=== PATIENT | female | born 1945 | race Caucasian/White ===

== ENCOUNTER → 2018-02-16 11:57 | Outpatient (CLI) | payer MEDICARE, SELFPAY ==
[2018-02-16 12:15] LABS: ALB/GLOB Ratio 0.9 RATIO (0.9-2.4); AST(SGOT) 69 U/L (15-37); Alanine Aminotransfer ALT/SGPT 30 U/L (13-56); Albumin, Serum 3.1 g/dL (3.2-5.0); Alkaline Phosphatase 97 U/L (45-117); Anion Gap 7 (5-15); BUN 22 mg/dL (7-18); BUN/Creat Ratio 17.5 RATIO (10-20); Calcium,Total 8.2 mg/dL (8.5-10.1); Chloride 107 mmol/L (98-107); Creatinine, Serum 1.26 mg/dL (0.55-1.02); EST Glomerular Filtration Rate 44 mL/min (>60); Est Glom Filt Rate - Afr Amer 53 mL/min (>60); Globulin 3.5 g/dL (2.2-4.2); Glucose 106 mg/dL (74-106); Potassium 4.1 mmol/L (3.5-5.1); Protein, Total 6.6 g/dL (6.4-8.2); Sodium Level 140 mmol/L (136-145)
== END ==
PROVIDERS: Family Provider Family Medicine; PCP Family Medicine; Visit Provider Internal Medicine Hematology & Oncology
DX: C91.10 Chronic lymphocytic leukemia of B-cell type not having achieved remission (principal); C50.111 Malignant neoplasm of central portion of right female breast; Z17.0 Estrogen receptor positive status [ER+]; D80.1 Nonfamilial hypogammaglobulinemia
CPT/HCPCS: 80053

== ENCOUNTER → 2018-04-27 11:02 | Outpatient (CLI) | payer MEDICARE, SELFPAY ==
[2018-04-27 11:25] LABS: ALB/GLOB Ratio 0.8 RATIO (0.9-2.4); AST(SGOT) 13 U/L (15-37); Alanine Aminotransfer ALT/SGPT 15 U/L (13-56); Albumin, Serum 3.1 g/dL (3.2-5.0); Alkaline Phosphatase 62 U/L (45-117); Anion Gap 8 (5-15); BUN 18 mg/dL (7-18); BUN/Creat Ratio 12.9 RATIO (10-20); Calcium,Total 8.2 mg/dL (8.5-10.1); Chloride 104 mmol/L (98-107); EST Glomerular Filtration Rate 39 mL/min (>60); Est Glom Filt Rate - Afr Amer 47 mL/min (>60); Globulin 3.8 g/dL (2.2-4.2); Glucose 163 mg/dL (74-106); Potassium 3.8 mmol/L (3.5-5.1); Protein, Total 6.9 g/dL (6.4-8.2); Sodium Level 139 mmol/L (136-145)
== END ==
PROVIDERS: Visit Provider Internal Medicine Hematology & Oncology
DX: C91.10 Chronic lymphocytic leukemia of B-cell type not having achieved remission (principal); Z17.0 Estrogen receptor positive status [ER+]; D80.1 Nonfamilial hypogammaglobulinemia
CPT/HCPCS: 80053

== ENCOUNTER → 2018-07-12 11:54 | Outpatient (CLI) | payer MEDICARE, SELFPAY ==
[2018-07-12 12:16] LABS: ALB/GLOB Ratio 0.9 RATIO (0.9-2.4); AST(SGOT) 12 U/L (15-37); Alanine Aminotransfer ALT/SGPT 13 U/L (13-56); Albumin, Serum 3.3 g/dL (3.2-5.0); Alkaline Phosphatase 54 U/L (45-117); Anion Gap 10 (5-15); BUN 22 mg/dL (7-18); BUN/Creat Ratio 15.3 RATIO (10-20); Calcium,Total 8.5 mg/dL (8.5-10.1); Chloride 105 mmol/L (98-107); Creatinine, Serum 1.44 mg/dL (0.55-1.02); EST Glomerular Filtration Rate 38 mL/min (>60); Est Glom Filt Rate - Afr Amer 46 mL/min (>60); Globulin 3.5 g/dL (2.2-4.2); Glucose 214 mg/dL (74-106); Potassium 3.8 mmol/L (3.5-5.1); Protein, Total 6.8 g/dL (6.4-8.2); Sodium Level 141 mmol/L (136-145)
== END ==
PROVIDERS: Family Provider Family Medicine; PCP Family Medicine; Visit Provider Internal Medicine Hematology & Oncology
DX: C91.90 Lymphoid leukemia, unspecified not having achieved remission (principal); C50.111 Malignant neoplasm of central portion of right female breast; Z17.0 Estrogen receptor positive status [ER+]
CPT/HCPCS: 80053

== ENCOUNTER 2020-03-13 14:34 | Emergency (ER) | payer MEDICARE, SELFPAY ==
[2020-03-13 14:36] VITALS: BP 137/68; PULSE 113; RESP 20; TEMP 36.7; O2SAT 98; BMI 26.0
--- NOTE | 2020-03-13 15:35 | RAD_ITS ---
STUDY: X-RAY CHEST REASON FOR EXAM: Female, 75 years old. Shortness of breath, chest congestion TECHNIQUE: Single AP portable view of the chest. COMPARISON: Comparison is made with prior examination dated February 04, 2015. FINDINGS: Mild increased markings at the lung bases slightly more prominent on the left side suggestive of linear atelectasis and/or scarring. No infiltrate is seen. There is no demonstrated pleural abnormality. Normal size heart. Normal mediastinum and ronald. Normal visualized pulmonary arteries. There is atherosclerotic tortuosity of the aortic arch and descending thoracic aorta. There are degenerative changes of the visualized thoracic spine. Normal visualized ribs, clavicles, and shoulders. There is no demonstrated abnormality of the visualized soft tissue structures of the upper abdomen. RAD/Chest 1 View (Portable) IMPRESSION: Mild increased markings at the lung bases suggestive of linear atelectasis and/or scarring. Electronically Signed: Hugh Gutiérrez, at 16:15 EDT , Service support ,
[2020-03-13 16:01] VITALS: BP 107/73; PULSE 92; RESP 17; TEMP 36.7; O2SAT 98
[2020-03-13 16:10] VITALS: O2SAT 98
--- NOTE | 2020-03-13 16:34 | ED.DCSUM_ITS ---
History of Present Illness Chief Complaint: Cough Informant: Patient Onset: Days - 2 Narrative: 2-day history of cough no productive sputum. No fevers. Mild myalgias yesterday. No vomiting or diarrhea. 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 States she gets IgG infusions last time was 7 weeks ago normally gets every 4 weeks however held due to current COVID pandemic. Had a temp of 99 yesterday. Call her oncologist Dr. Christina was told to go get a chest x-ray. States went to outpatient department was told to go to the ED. No respiratory distress. No dyspnea. No wheeze. Prior similar symptoms: No Past Medical History - Allergies and Home Meds Allergies/Adverse Reactions: Allergies quinine Allergy (Verified 03/13/20 14:39) Rash sulfamethoxazole [From Bactrim] Allergy (Verified 03/13/20 14:39) Rash trimethoprim [From Bactrim] Allergy (Verified 03/13/20 14:39) Rash Primary Care Physician: Ho Walker MD [Primary Care Provider] - Past Medical History: - - CLL, breast cancer, acquired thrombocytopenia, hypo- agammaglobulinemia, Smoking Status: Never smoker Review of Systems General: Denies: Chills, Fever, Sweats Eyes: Denies: Visual changes - bilaterally, Diplopia ENT: Denies: Rhinorrhea, Sore throat Cardiovascular: Denies: Chest pain, Palpitations Respiratory: Reports: Cough. Denies: Dyspnea, Dyspnea on exertion Gastrointestinal: Denies: Abdominal pain, Nausea, Vomiting, Diarrhea, Melena, Hematochezia Genitourinary: Denies: Dysuria, Hematuria, Frequency Musculoskeletal: Denies: Back pain, Extremity Pain Skin: Denies: Rash, Wounds Neurological: Denies: Headache, Weakness, Numbness Physical Exam Vital Signs/Narrative: Vital Signs Temp Pulse Resp BP Pulse Ox 03/13/20 16:01 98.0 F 92 17 107/73 98 03/13/20 14:36 98.0 F 113 H 20 H 137/68 H 98 General: Well nourished, Well developed, No Acute Distress Head: Normocephalic, Atraumatic Eyes: Perrl, EOMI ENT: Moist mucous membranes, No rhinorrhea Neck: Supple, Nontender Cardiovascular: Regular rate, Regular rhythm, No murmurs, Tachycardia Respiratory: No distress, CTA bilaterally, Chest nontender Abdomen: Soft, Nontender, Nondistended, Normal bowel sounds Back: Nontender, Normal Inspection Extremities: Nontender, No edema Skin: Normal color, No rash Neurological: Alert, Oriented x3, Cranial nerves II-XII grossly intact, Normal Strength, Normal Sensation Psychological: Normal affect, Normal Mood Diagnostic/Tx/Re-eval - Medical Decision Making Patient nontoxic slight tachycardia. She is not hypoxic. Chest x-ray was negative. I discussed with [facility], cleared to have COVID testing which is obtained and pending. Discussed with patient any worsening respiratory complaints to return otherwise follow-up as an outpatient. All questions were answered. ED Disposition - Plan for ED Patient: Disposition: Home or Assisted Living Diagnosis: Viral syndrome Instructions: ED Upper Resp Infec No Abx Tx Referrals: Ho Walker MD [Primary Care Provider] - 3-5 Days if not improving Additional Instructions: COVID testing sent and is pending. Monitor symptoms any worsening shortness of breath return for reevaluation.
[2020-03-13 17:02] VITALS: RESP 17; O2SAT 98
--- NOTE | 2020-03-15 17:51 | ED.RN ---
PT NOTIFIED COVID TEST NEGATIVE
== END 2020-03-13 17:03 | disposition home or self-care (01) ==
PROVIDERS: Emergency Provider Emergency Medicine; PCP Family Medicine
DX: B34.9 Viral infection, unspecified (principal); C91.10 Chronic lymphocytic leukemia of B-cell type not having achieved remission; D69.6 Thrombocytopenia, unspecified; Z85.3 Personal history of malignant neoplasm of breast; Z88.1 Allergy status to other antibiotic agents; Z88.2 Allergy status to sulfonamides; Z03.818 Encounter for observation for suspected exposure to other biological agents ruled out
CPT/HCPCS: 71045; 87635; 99282; G2023; U0004

== ENCOUNTER → 2020-11-19 14:18 | Outpatient (CLI) | payer MEDICARE, SELFPAY ==
--- NOTE | 2020-11-19 14:19 | VDLE_ITS ---
Reason For Study: pain and edema RIGHT GSV is normal. CFV is compressible, spontaneous, phasic, competent and demonstrates normal augmentation. FV is compressible, spontaneous, phasic, competent and demonstrates normal augmentation. POP V is compressible, spontaneous, phasic, competent and demonstrates normal augmentation. T/P Trunk is compressible. PTV is compressible. RT PerV is compressible. Heterogeneous area behind the knee measuring .62 x 2.5 cm. Area is nonvascular. Procedure This is a venous duplex using B-mode, color flow and spectral Doppler. Exam performed in department. The exam was abbreviated due to the COVID 19 protocol. The exam was diagnostic. A preliminary report was called and/or faxed to [facility]. Interpretation Summary Deep veins of the right lower extremity are patent and compressible segmentally. There is no evidence of right lower extremity deep vein thrombosis. Valvular competence appears intact within the proximal deep venous system on the right . The right great saphenous vein appears patent and compressible segmentally. A non-vascular, heterogeneous structure is noted in the right popliteal space, measuring 0.62 cm x 2.5 cm. This probably represents a popliteal cyst. Clinical correlation is advised. Ordering Physician: Steve Arguelles Performed By: Benjie Forrest RVT
== END ==
PROVIDERS: PCP Family Medicine; Visit Provider Podiatrist
DX: R60.0 Localized edema (principal); M79.604 Pain in right leg
CPT/HCPCS: 93971

== ENCOUNTER → 2021-03-25 08:51 | Outpatient (CLI) | payer MEDICARE, SELFPAY ==
--- NOTE | 2021-03-25 08:57 | BI_ITS ---
MAMMOGRAPHY - BILATERAL DIAGNOSTIC REASON FOR EXAM: Female, 76 years old. Discoloration of the upper outer quadrant of the right breast. PERTINENT HISTORY: Personal history of breast cancer. Patient status post lumpectomy and radiation therapy. TECHNIQUE: Digital bilateral breast sydnie (3D mammographic acquisition) in the CC and MLO projections. 2-D mediolateral oblique (MLO) and craniocaudad (CC) views of both breasts were obtained. CAD: Full Field Digital Mammography with Computer Added Detection was performed. COMPARISON: Comparison is made with prior outside examination of 09/18/2019. FINDINGS: Breast Composition: The breasts are heterogeneously dense, which may obscure small masses. There are no dominant masses or suspicious calcifications. The patient is status post lumpectomy in the slightly upper central portion of the right breast with resultant postoperative scarring. Surgical clips are also seen in the right axillary region. No other significant abnormalities are identified. BI/DIAG MAMM W/CAD, BILAT IMPRESSION: Stable bilateral diagnostic mammogram. Ultrasound correlation of the upper-outer quadrant of the right breast recommended. ASSESSMENT CATEGORY: BIRADS Category 0: Incomplete. Need additional imaging evaluation. A letter regarding these results will be sent to the patient by the facility within 30 days. Approximately 10% of breast cancers are not detected by mammography. A normal mammogram should not delay biopsy of a clinically suspicious abnormality. Electronically Signed: Hugh Gutiérrez MD at 10:34 EDT , Service support ,
--- NOTE | 2021-03-25 08:58 | US_ITS ---
STUDY: ULTRASOUND BREAST - RIGHT REASON FOR EXAM: Female, 76 years old. Pain in the right breast. Idiopathic bruising in the upper outer quadrant of the right breast. TECHNIQUE: Axial and longitudinal images of the RIGHT breast were performed with a high resolution ultrasound transducer. # OF IMAGES: 42 COMPARISON: Comparison is made with prior mammogram done earlier in the day. FINDINGS: RIGHT Breast: At the surgical site in the upper outer quadrant of the right breast, there are 2 adjacent areas of shadowing at 12 o''clock position breast at 5 cm from the nipple. The larger density measures 1.2 cm x 2.2 cm by 2.4 cm. This may or present postoperative scarring although a recurrence cannot be excluded. A biopsy is recommended. US/Breast Complete Unilateral IMPRESSION: 2 adjacent areas of shadowing are seen at the 12 o''clock position of the breast at 5 cm from nipple. This is the area of prior surgical intervention. This most likely represents areas of scarring although recurrence cannot be excluded. A biopsy recommended. ASSESSMENT CATEGORY: BIRADS Category 4: Suspicious - Biopsy Should Be Considered. A letter regarding these results will be sent to the patient by the facility within 30 days. Electronically Signed: Hugh Gutiérrez MD at 15:28 EDT , Service support ,
== END ==
PROVIDERS: PCP Family Medicine; Referring Provider Internal Medicine Hematology & Oncology; Visit Provider Internal Medicine Hematology & Oncology
DX: N64.59 Other signs and symptoms in breast (principal)
CPT/HCPCS: 76641; 77062; 77066; G0279

== ENCOUNTER → 2023-07-21 | Outpatient (CLI) | payer MEDICARE, SELFPAY ==
--- NOTE | 2023-07-21 10:55 | RAD_ITS ---
STUDY: X-RAY - LOWER PELVIS AND BOTH LOWER EXTREMITIES REASON FOR STUDY: Female, 78 years old. ORIF of left proximal femur. Evaluate for leg length discrepancy. TECHNIQUE -frontal views of the pelvis, femurs and lower extremity were obtained on 9 images. COMPARISON: None. FINDINGS: Osteopenia. Intramedullary keshav with interlocking dynamic hip screw on the left. Moderate arthrosis of the right hip, moderate medial compartmental arthrosis and mild lateral compartmental arthrosis of the knees and mild arthrosis of the tibiotalar joints. On the right, distance from the acetabular rim to the medial compartment of the knee is 50 cm. Distance from the right knee to the tibiotalar joint is 41 cm. Total distance from the right acetabular rim to the tibiotalar joint is approximately 91 cm. On the left, the distance from the acetabular rim to the medial compartment of the left knee is 48 cm. The distance from the left knee to the tibiotalar joint is 41 cm. Total distance from the left acetabular rim to the tibiotalar joint is 89 cm. Leg length discrepancy with left lower extremity 2 cm shorter than the right. RAD/Bone Length IMPRESSION: Leg length discrepancy with left extremity 2 cm shorter than the right extremity. Electronically Signed: Edil Wharton MD at 16:03 EDT ,
== END | disposition home or self-care (01) ==
LOC: MTRAD 10:48
PROVIDERS: PCP Family Medicine; Referring Provider Podiatrist; Visit Provider Podiatrist
DX: M21.70 Unequal limb length (acquired), unspecified site (principal)
CPT/HCPCS: 77073

== ENCOUNTER 2024-03-23 13:05 | Emergency (ER) | payer MEDICARE, SELFPAY ==
[2024-03-23] VITALS (8 sets, daily range): BP systolic 100–124; BP diastolic 65–92; PULSE 67–156; RESP 14–21; TEMP 36.1; O2SAT 94–100
--- NOTE | 2024-03-23 13:26 | CT_ITS ---
STUDY: CT ABDOMEN AND PELVIS WITHOUT CONTRAST REASON FOR EXAM: Female, 79 years old. Bladder prolapse RADIATION DOSAGE (If Supplied By Facility): CTDIvol = ( 8.94 ) mGy, DLP = ( 431.7 ) mGycm TECHNIQUE: Transaxial images were obtained from the dome of the diaphragm to the symphysis pubis without oral contrast, and without intravenous contrast. Sagittal and coronal images were reconstructed. Individualized dose optimization techniques were used for this CT. COMPARISON: None. FINDINGS: Bilateral pleural effusions right greater than left with bibasilar atelectasis superimposed on scarring. Coronary artery calcification. Moderate to large pericardial effusion. Normal liver. The gallbladder is not visualized most likely secondary to prior cholecystectomy. Normal spleen. Normal pancreas. Normal bilateral adrenal glands. Normal right kidney. Normal left kidney. Normal visualized stomach. Normal small intestine. There are multiple colonic diverticula consistent with diverticulosis. There is non-visualization of the appendix. There is diffuse atherosclerotic calcification of the abdominal aorta and its major visceral branches, without a demonstrated aneurysm. Normal inferior vena cava. Normal retroperitoneum. A Ozuna catheter is seen within a decompressed urinary bladder. Small amount of free fluid is seen in the cul-de-sac. Small amount of fluid is seen in the right para colic gutter. Normal abdominal wall. There are diffuse degenerative changes of the visualized lumbar spine. Dextroconvex scoliosis. Marked degree of degenerative changes of the right hip joint. Prior pinning of the left proximal femur. CT/Abdomen/Pelvis without Cont IMPRESSION: Bilateral pleural effusions right greater than left with moderate to large pericardial effusion. Atelectasis and scarring at the lung bases. Small amount of right paracolic fluid as well as fluid in the cul-de-sac. Sigmoid diverticulosis. A Ozuna catheter is seen within the decompressed urinary bladder. Electronically Signed: Hugh Gutiérrez MD at 14:53 EDT ,
--- NOTE | 2024-03-23 13:32 | EX.ED.DYSGE1 ---
HPI <Dr. Viviana De Leon MD - Last Filed: 03/24/24 12:05> History of Present Illness Chief Complaint: Complaint Informant: patient Narrative Narrative: Patient presents with difficulty urinating and concern for possible prolapsed bladder. She states her oncologist told her a couple days ago he thinks she might have a prolapsed bladder. Today she has not been able to urinate but states she is just now feeling the urge to urinate. She tried to call Dr. Hernández's office this morning as a new patient but she states there was no answer. She then presented to the emergency room. She did have a hysterectomy in the past. She states that they tied her bladder up at that time. That surgery was greater than 20 years ago. [facility] <Dr. Viviana De Leon MD - Last Filed: 03/24/24 12:05> [facility] Medical History (Updated 03/23/24 @ 16:[address] Viviana De Leon MD) Anemia CLL (chronic lymphocytic leukemia) Diabetes History of breast cancer Hypothyroidism Home Medications gabapentin 400 mg capsule 400 mg PO Q12H 02/21/15 [History Last Taken Unknown] glimepiride 4 mg tablet 4 mg PO DAILY 02/21/15 [History Last Taken Unknown] hydrocodone-acetaminophen 5-325mg 5mg-325mg 1 tab PO QHS 02/21/15 [History Last Taken Unknown] metformin 500 mg tablet 500 mg PO DAILY 02/21/15 [History Last Taken Unknown] tamoxifen 10 mg tablet 20 mg PO DAILY 02/21/15 [History Last Taken Unknown] Mometasone Furoate 03/13/20 [History Last Taken Unknown] cranberry 500 mg capsule 500 mg PO DAILY 03/13/20 [History Last Taken Unknown] dexamethasone sodium phosphate 0.1 % eye drops 1 drp ophthalmic (eye) Q24H PRN dry eyes 03/13/20 [History Last Taken Unknown] docusate calcium 240 mg capsule 240 mg PO BID 03/13/20 [History Last Taken Unknown] folic acid 1 mg tablet 1 mg PO DAILY 03/13/20 [History Last Taken Unknown] ibrutinib 140 mg capsule 280 mg PO BID 03/13/20 [History Last Taken Unknown] lansoprazole 30 mg capsule,delayed release 30 mg PO DAILY 03/13/20 [History Last Taken Unknown] levothyroxine 75 mcg tablet 75 mcg PO DAILY 03/13/20 [History Last Taken Unknown] lorazepam 1 mg tablet 1 mg PO DAILY PRN PRN Anxiety 03/13/20 [History Last Taken Unknown] lutein 20 mg-zeaxanthin 1,000 mcg capsule 1 ea PO DAILY 03/13/20 [History Last Taken Unknown] magnesium oxide 400 mg (241.3 mg magnesium) tablet 400 mg PO DAILY 03/13/20 [History Last Taken Unknown] methenamine hippurate 1 gram tablet 1 gm PO BID 03/13/20 [History Last Taken Unknown] montelukast 10 mg tablet 10 mg PO DAILY 03/13/20 [History Last Taken Unknown] nitrofurantoin macrocrystal 100 mg capsule 100 mg PO DAILY 03/13/20 [History Last Taken Unknown] ondansetron HCl 4 mg tablet 4 mg PO PRN PRN Nausea 03/13/20 [History Last Taken Unknown] potassium 99 mg tablet 99 mg PO DAILY 03/13/20 [History Last Taken Unknown] denosumab 60 mg/mL subcutaneous syringe (Prolia) 60 mg subcut Q6M 03/23/24 [History Last Taken Unknown] simvastatin 20 mg tablet 20 mg PO QHS 03/23/24 [History Last Taken Unknown] Allergy/AdvReac Type Severity Reaction Status Date / Time quinine Allergy Rash Verified 03/23/24 13:07 sulfamethoxazole Allergy Rash Verified 03/23/24 13:07 [From Bactrim] trimethoprim [From Bactrim] Allergy Rash Verified 03/23/24 13:07 Social History Smoking Status: Never smoker ROS <Dr. Viviana De Leon MD - Last Filed: 03/24/24 12:05> ROS ED Constitutional Constitutional ED: Reports chills; Denies fever(s) Eyes Eyes: Denies change in vision or discharge from eye(s) ENT ENT ED: Denies discharge from eye(s), rhinorrhea or sore throat Cardiovascular Cardiovascular: Denies chest pain or palpitations Respiratory/Chest Respiratory/Chest: Denies cough or dyspnea Gastrointestinal Gastrointestinal: Denies abdominal pain, nausea or vomiting Genitourinary Genitourinary ED: Reports difficulty urinating Musculoskeletal Musculoskeletal: Denies back pain or extremity pain Integumentary Denies Abrasions or rash Neurologic Neurologic: Reports weakness; Denies headache(s) Psychiatric Psychiatric: Denies anxiety or depression Allergic/Immunologic Allergic/Immunologic ED: Denies lip swelling or urticaria EXAM <Dr. Viviana De Leon MD - Last Filed: 03/24/24 12:05> Physical Exam Const Vital Signs: 03/23/24 13:06 03/23/24 15:06 03/23/24 16:35 Temperature 97 F L Temperature Source Temporal Pulse Rate 67 86 156 H Respiratory Rate 14 15 20 H Blood Pressure 120/86 H 112/74 117/68 Blood Pressure Mean 97 86 79 Pulse Ox 100 97 Oxygen Delivery Method Room Air Room Air 03/23/24 16:45 03/23/24 17:00 03/23/24 19:00 Temperature Temperature Source Pulse Rate 91 95 Respiratory Rate 19 H 19 H 20 H Blood Pressure 103/76 100/73 116/85 H Blood Pressure Mean 84 82 95 Pulse Ox 95 Oxygen Delivery Method Room Air 03/23/24 21:23 03/23/24 23:00 03/23/24 23:00 Temperature 97 F L Temperature Source Pulse Rate 98 127 H 127 H Respiratory Rate 14 21 H 21 H Blood Pressure 124/65 H 118/92 H 118/92 H Blood Pressure Mean 84 100 100 Pulse Ox 94 95 95 Oxygen Delivery Method Room Air 03/24/24 01:00 Temperature Temperature Source Pulse Rate 88 Respiratory Rate 17 Blood Pressure 95/47 L Blood Pressure Mean 63 Pulse Ox 92 Oxygen Delivery Method Room Air Positive well nourished and well developed General Appearance ED: well developed HEENT Reports moist mucous membranes Eyes EOMs intact bilaterally Chest Wall inspection of chest normal and palpation of chest normal Resp normal respiratory effort and clear to auscultation bilaterally Cardio regular rate and regular rhythm GI normal to inspection, nondistended, normoactive bowel sounds and non-tender Narrative: External examination reveals no acute abnormalities. No evidence of obvious prolapse or cystocele. Neuro oriented x3 Neuro Narrative: Generalized weakness but no focal neurologic deficit noted. Psych mental status grossly normal Skin no rashes or lesions noted <Dr. Emmett Krause DO - Last Filed: 03/24/24 00:40> Physical Exam Const Vital Signs: 03/23/24 13:06 03/23/24 15:06 03/23/24 16:35 Temperature 97 F L Temperature Source Temporal Pulse Rate 67 86 156 H Respiratory Rate 14 15 20 H Blood Pressure 120/86 H 112/74 117/68 Blood Pressure Mean 97 86 79 Pulse Ox 100 97 Oxygen Delivery Method Room Air Room Air 03/23/24 16:45 03/23/24 17:00 03/23/24 19:00 Temperature Temperature Source Pulse Rate 91 95 Respiratory Rate 19 H 19 H 20 H Blood Pressure 103/76 100/73 116/85 H Blood Pressure Mean 84 82 95 Pulse Ox 95 Oxygen Delivery Method Room Air 03/23/24 21:23 03/23/24 23:00 03/23/24 23:00 Temperature 97 F L Temperature Source Pulse Rate 98 127 H 127 H Respiratory Rate 14 21 H 21 H Blood Pressure 124/65 H 118/92 H 118/92 H Blood Pressure Mean 84 100 100 Pulse Ox 94 95 95 Oxygen Delivery Method Room Air 03/24/24 01:00 Temperature Temperature Source Pulse Rate 88 Respiratory Rate 17 Blood Pressure 95/47 L Blood Pressure Mean 63 Pulse Ox 92 Oxygen Delivery Method Room Air MDM <Dr. Viviana De Leon MD - Last Filed: 03/24/24 12:05> [facility] MDM Narrative Medical decision making narrative: IV line established. Labwork obtained to evaluate for leukocytosis, anemia, and electrolyte derangement. Urinalysis obtained to evaluate for infection/hematuria. CT flank obtained to evaluate for bladder position, hydronephrosis. History & Record Review Discussion w/independent historian: Patient and Significant other Lab Data Attestation: I reviewed the patient's lab results. Labs: Laboratory Results - last 24 hr 03/23/24 03/23/24 13:40 14:05 WBC 8.2 RBC 3.86 L Hgb 10.6 L Hct 35.8 L MCV 92.7 MCH 27.5 MCHC 29.6 L RDW Std Deviation 55.1 H RDW Coeff of Maximo 16.6 H Plt Count 94 L MPV 10.9 Immature Gran % (Auto) 0.600 Neut % (Auto) 49.6 Lymph % (Auto) 41.7 H [place] % (Auto) 6.9 Eos % (Auto) 1.0 Baso % (Auto) 0.2 Absolute Neuts (auto) 4.1 Absolute Lymphs (auto) 3.43 Nucleated RBC % 0 Differential Comment Sodium 130 L Potassium 3.9 Chloride 99 Carbon Dioxide 25.0 Anion Gap 6 BUN 49 H Creatinine 1.77 H Est GFR (MDRD) Af Amer 36 L Est GFR (MDRD) Non-Af 29 L BUN/Creatinine Ratio 27.7 H Glucose 117 H Calcium 7.0 L Total Bilirubin 0.70 Direct Bilirubin 0.20 AST 18 ALT 14 Alkaline Phosphatase 62 Total Protein 6.1 L Albumin 3.2 Globulin 2.9 Urine Color Yellow Urine Clarity Sl. Cloudy Urine pH 6.0 Ur Specific [place] 1.020 Urine Protein 100 H Urine Glucose (UA) Normal Urine Ketones 5 H Urine Occult Blood Negative Urine Nitrite Negative Urine Bilirubin Negative Urine Urobilinogen Normal Ur Leukocyte Esterase Negative Urine RBC 0 SEEN Urine WBC 0-5 SEEN Ur Squamous Epith Cells 0 SEEN Urine Bacteria 0 SEEN Urine Mucus 0 SEEN Radiography Diagnostic Testing: Clinical Impression(s) from Imaging Studies Abdomen/Pelvis CT 03/23/24 13:26 IMPRESSION: Bilateral pleural effusions right greater than left with moderate to large pericardial effusion. Atelectasis and scarring at the lung bases. Small amount of right paracolic fluid as well as fluid in the cul-de-sac. Sigmoid diverticulosis. A Ozuna catheter is seen within the decompressed urinary bladder. Electronically Signed: Hugh Gutiérrez MD at 14:53 EDT , Treatment and Re-Evaluation :: CBC was normal white count 8.2 with normal differential. Hemoglobin is 10.6. Chemistry studies reveal sodium low at 130. Her BUN is 49 and her creatinine is 1.77. Glucose is 117. LFTs unremarkable. Urinalysis reveals no evidence of infection. CT scan of the abdomen and pelvis reveals bilateral pleural effusions right greater than left with moderate to large pericardial effusion. Atelectasis and scarring at the lung bases are noted. There is a small amount of right paracolic fluid as well as fluid in the cul-de-sac. Sigmoid diverticulosis noted. A Ozuna catheter is in the decompressed bladder. EKG is obtained given her pericardial effusion. This is sinus rhythm at 87 with slightly low voltage QRS complexes. Patient states sitting at rest she feels quite comfortable. When she gets up to try to walk at home she gets dizzy, lightheaded, and short of breath. I spoke with the patient's primary oncologist, Dr. Christina as well as the hospitalist. Given the size of her pericardial effusion they do feel she should be transferred as we are not able to obtain a stat echocardiogram at this time. Patient would prefer to go to [facility]. Patient was placed on access assoc. She was noted to be tachycardic. Repeat EKG is obtained that shows A-fib RVR with a ventricular rate of 143. I went back to bedside. Patient does not feel that her heart is racing. She has no complaints. She will be given 10 mg of IV Cardizem for rate control. Blood pressure is appropriate. Addendum: Nursing staff took patient's Cardizem back to give her, however she had converted back to sinus rhythm with ventricular rate in the 80s at that time. Cardizem will be held at bedside but not given at this point. <Dr. Emmett Krause, DO - Last Filed: 03/24/24 00:40> [facility] Lab Data Labs: Laboratory Results - last 24 hr 03/23/24 03/23/24 13:40 14:05 WBC 8.2 RBC 3.86 L Hgb 10.6 L Hct 35.8 L MCV 92.7 MCH 27.5 MCHC 29.6 L RDW Std Deviation 55.1 H RDW Coeff of Maximo 16.6 H Plt Count 94 L MPV 10.9 Immature Gran % (Auto) 0.600 Neut % (Auto) 49.6 Lymph % (Auto) 41.7 H [place] % (Auto) 6.9 Eos % (Auto) 1.0 Baso % (Auto) 0.2 Absolute Neuts (auto) 4.1 Absolute Lymphs (auto) 3.43 Nucleated RBC % 0 Differential Comment Sodium 130 L Potassium 3.9 Chloride 99 Carbon Dioxide 25.0 Anion Gap 6 BUN 49 H Creatinine 1.77 H Est GFR (MDRD) Af Amer 36 L Est GFR (MDRD) Non-Af 29 L BUN/Creatinine Ratio 27.7 H Glucose 117 H Calcium 7.0 L Total Bilirubin 0.70 Direct Bilirubin 0.20 AST 18 ALT 14 Alkaline Phosphatase 62 Total Protein 6.1 L Albumin 3.2 Globulin 2.9 Urine Color Yellow Urine Clarity Sl. Cloudy Urine pH 6.0 Ur Specific [place] 1.020 Urine Protein 100 H Urine Glucose (UA) Normal Urine Ketones 5 H Urine Occult Blood Negative Urine Nitrite Negative Urine Bilirubin Negative Urine Urobilinogen Normal Ur Leukocyte Esterase Negative Urine RBC 0 SEEN Urine WBC 0-5 SEEN Ur Squamous Epith Cells 0 SEEN Urine Bacteria 0 SEEN Urine Mucus 0 SEEN Radiography Diagnostic Testing: Clinical Impression(s) from Imaging Studies Abdomen/Pelvis CT 03/23/24 13:26 IMPRESSION: Bilateral pleural effusions right greater than left with moderate to large pericardial effusion. Atelectasis and scarring at the lung bases. Small amount of right paracolic fluid as well as fluid in the cul-de-sac. Sigmoid diverticulosis. A Ozuna catheter is seen within the decompressed urinary bladder. Electronically Signed: Hugh Gutiérrez MD at 14:53 EDT , Treatment and Re-Evaluation :: CBC was normal white count 8.2 with normal differential. Hemoglobin is 10.6. Chemistry studies reveal sodium low at 130. Her BUN is 49 and her creatinine is 1.77. Glucose is 117. LFTs unremarkable. Urinalysis reveals no evidence of infection. CT scan of the abdomen and pelvis reveals bilateral pleural effusions right greater than left with moderate to large pericardial effusion. Atelectasis and scarring at the lung bases are noted. There is a small amount of right paracolic fluid as well as fluid in the cul-de-sac. Sigmoid diverticulosis noted. A Ozuna catheter is in the decompressed bladder. EKG is obtained given her pericardial effusion. This is sinus rhythm at 87 with slightly low voltage QRS complexes. Patient states sitting at rest she feels quite comfortable. When she gets up to try to walk at home she gets dizzy, lightheaded, and short of breath. I spoke with the patient's primary oncologist, Dr. Christina as well as the hospitalist. Given the size of her pericardial effusion they do feel she should be transferred as we are not able to obtain a stat echocardiogram at this time. Patient would prefer to go to [facility]. Patient was placed on access assoc. She was noted to be tachycardic. Repeat EKG is obtained that shows A-fib RVR with a ventricular rate of 143. I went back to bedside. Patient does not feel that her heart is racing. She has no complaints. She will be given 10 mg of IV Cardizem for rate control. Blood pressure is appropriate. Addendum: Nursing staff took patient's Cardizem back to give her, however she had converted back to sinus rhythm with ventricular rate in the 80s at that time. Cardizem will be held at bedside but not given at this point. 1708: Le. Patient signed to me awaiting callback for transfer to [facility]. We receive callback, patient accepted under service Dr. Jeter. 03/24/24: 0030: Awaiting transport at this time. Reevaluate patient she reports her chronic back pain is acting up. She takes gabapentin 800 mg along with hydrocodone 5 mg. This was ordered. However in the room heart rate fluctuating 130s to 150s appear to be recurrent A-fib she is asymptomatic with this. Blood pressure systolic 90s. Likely paradoxical, will give 10 mg IV Cardizem. 0040: After 10 of Cardizem patient immediately converted back to sinus rhythm heart rate 90s blood pressure systolic 110s. Await transport. Discharge Plan Triage Chief Complaint: Complaint ED Provider: Viviana De Leon Dx/Rx/DC Orders Clinical Impression: Hyponatremia, Pericardial effusion, Pleural effusion, New onset a-fib, Atrial fibrillation with RVR Prescriptions: No Action metformin 500 MG tablet 500 mg PO DAILY hydrocodone-acetaminophen 1 TABLET tablet 1 tab PO QHS gabapentin 400 MG capsule 400 mg PO Q12H glimepiride 4 MG tablet 4 mg PO DAILY tamoxifen 10 MG tablet 20 mg PO DAILY docusate calcium 240 MG capsule 240 mg PO BID ondansetron HCl 4 MG tablet 4 mg PO PRN PRN (Reason: Nausea) levothyroxine 75 MCG tablet 75 mcg PO DAILY potassium 99 MG tablet 99 mg PO DAILY methenamine hippurate 1 GM tablet 1 gm PO BID magnesium oxide 400 MG tablet 400 mg PO DAILY nitrofurantoin macrocrystal 100 MG capsule 100 mg PO DAILY lansoprazole 30 MG capsule 30 mg PO DAILY folic acid 1 MG tablet 1 mg PO DAILY montelukast 10 MG tablet 10 mg PO DAILY lorazepam 1 MG tablet 1 mg PO DAILY PRN PRN (Reason: Anxiety) cranberry 500 MG capsule 500 mg PO DAILY ibrutinib 140 MG capsule 280 mg PO BID lutein-zeaxanthin 1 EACH capsule 1 ea PO DAILY dexamethasone sodium phosphate 0.1% drops 1 drp ophthalmic (eye) Q24H PRN (Reason: dry eyes) Mometasone Furoate simvastatin 20 mg tablet 20 mg PO QHS Prolia 60 mg/mL syringe 60 mg subcut Q6M Rx Instructions: last shot was roughly 3 weeks ago Primary Care Provider: Ho Walekr Referrals: Ho Walker MD [Primary Care Provider] - Disposition Disposition: Acute Care Hospital Discharge Location: [facility] Discharge Date/Time: 03/24/24 01:47
[2024-03-23] MEDS: 0.9% Normal Saline (1000mL) 1,000 ML 150 ML IV ×2 (13:47→21:24)
[2024-03-23 13:57] LABS: Absolute Lymphocyte Count 3.43 X10^3/uL (0.83-4.51); Absolute Neutrophil Count 4.1 X10^3/uL (2.0-7.7); Basophil# 0.02 X10^3/uL; Basophil% 0.2 % (0-1); Eosinophil# 0.08 X10^3/uL; Hematocrit 35.8 % (37-47); Hemoglobin 10.6 g/dL (12.0-15.0); Lymphocyte # 3.43 X10^3/ul (0.83-4.51); Lymphocyte % 41.7 % (19-41); Mean Corp Hgb Conc 29.6 g/dL (32-36); Mean Corpuscular Hgb 27.5 pg (27.0-32.0); Mean Corpuscular Volume 92.7 fL (81-99); Mean Platelet Vol. 10.9 fl (6.2-12.0); Monocyte# 0.57 X10^3/uL; Monocyte% 6.9 % (0-10); NRBC Flagged by Analyzer 0 % (0-5); Neutrophil # 4.08 X10^3/uL (2.7-7.7); Neutrophil % 49.6 % (47-70); POSITIVE COUNT YES; Platelet Count 94 K/mm3 (150-450); RBC Distribution Width CV 16.6 % (11.6-14.6); RBC Distribution Width SD 55.1 fl (35.1-43.9); Red Blood Count 3.86 M/mm3 (4.2-5.4); White Blood Count 8.2 K/mm3 (4.4-11.0)
[2024-03-23 14:03] LABS: Differential Indicated SCAN CRITERIA MET
[2024-03-23 14:06] LABS: Bacteria 0 SEEN /hpf (None Seen); Mucous, Urine 0 SEEN /hpf (<or=2+); Red Blood Cells-Urine 0 SEEN /hpf (0-5); Squamous Epithelial Cells - UA 0 SEEN /hpf (5-10)
[2024-03-23 14:08] LABS: AST(SGOT) 18 U/L (15-37); Alanine Aminotransfer ALT/SGPT 14 U/L (13-56); Albumin, Serum 3.2 g/dL (3.2-5.0); Alkaline Phosphatase 62 U/L (45-117); Anion Gap 6 (5-15); BUN 49 mg/dL (7-18); BUN/Creat Ratio 27.7 RATIO (10-20); Chloride 99 mmol/L (98-107); Creatinine, Serum 1.77 mg/dL (0.55-1.02); EST Glomerular Filtration Rate 29 mL/min (>60); Est Glom Filt Rate - Afr Amer 36 mL/min (>60); Globulin 2.9 g/dL (2.2-4.2); Glucose 117 mg/dL (74-106); Potassium 3.9 mmol/L (3.5-5.1); Protein, Total 6.1 g/dL (6.4-8.2); Sodium Level 130 mmol/L (136-145)
[2024-03-23 14:16] LABS: Color, Urine Yellow (Yellow); Glucose, Dipstick Normal (Normal); Ketone-Dipstick 5 mg/dl (Negative); Leukocyte Esterase-Dipstick Negative /ul (Negative); Nitrite-Dipstick Negative (Negative); Occult Blood-Urine Negative /ul (Negative); Protein-Dipstick 100 mg/dl (Negative); Urine Bilirubin Dipstick Negative (Negative); Urine Clarity Sl. Cloudy (Clear); Urine Urobilinogen Normal (Normal)
[2024-03-23 14:38] LABS: White Blood Cells 0-5 SEEN /hpf (0-5)
[2024-03-24] MEDS: dilTIAZem 25 MG/5 ML Vial 10 MG IV BOLUS (00:33)
[2024-03-24] MEDS: Gabapentin 800 MG Tablet PO (00:35)
[2024-03-24] MEDS: HYDROcodone Bitartrate/Apap 5/325 Tablet PO (00:37)
[2024-03-24 01:00] VITALS: BP 95/47; PULSE 88; RESP 17; O2SAT 92
== END 2024-03-24 01:47 | disposition short-term general hospital (02) ==
PROVIDERS: Emergency Provider Emergency Medicine; PCP Family Medicine; Visit Provider Emergency Medicine
DX: I31.39 Other pericardial effusion (noninflammatory) (principal); I48.91 Unspecified atrial fibrillation; E11.9 Type 2 diabetes mellitus without complications; Z85.3 Personal history of malignant neoplasm of breast; E87.1 Hypo-osmolality and hyponatremia; J90 Pleural effusion, not elsewhere classified; Z90.710 Acquired absence of both cervix and uterus; Z79.84 Long term (current) use of oral hypoglycemic drugs; E03.9 Hypothyroidism, unspecified; Z79.899 Other long term (current) drug therapy
CPT/HCPCS: 74176; 80048; 80076; 81001; 85025; 93005; 96360; 96361; 99285; J7030; A4216

== ENCOUNTER → 2024-12-14 | Outpatient (CLI) | payer MEDICARE, SELFPAY ==
[2024-12-14 15:42] LABS: Albumin, Serum 3.2 g/dL (3.2-5.0); BUN 27 mg/dL (7-18); Calcium,Total 9.3 mg/dL (8.5-10.1); Chloride 102 mmol/L (98-107); EST Glomerular Filtration Rate 35 mL/min (>60); Est Glom Filt Rate - Afr Amer 43 mL/min (>60); Glucose 148 mg/dL (74-106); Phosphorus 4.7 mg/dL (2.5-4.9); Potassium 4.6 mmol/L (3.5-5.1); Sodium Level 136 mmol/L (136-145)
== END | disposition home or self-care (01) ==
LOC: LAB 13:30
PROVIDERS: PCP Family Medicine; Referring Provider Internal Medicine Nephrology; Visit Provider Internal Medicine Nephrology
DX: N18.32 Chronic kidney disease, stage 3b (principal)
CPT/HCPCS: 36415; 80069